=== PATIENT | male | born 1945 | race Two or more races ===

== ENCOUNTER 2018-09-18 06:43 | Day surgery (SDC) | payer OTHER ==
[~2018-09-18 06:43] MED LIST: GLIPIZIDE XL10 MG PO; HUMULIN 70100 UNIT/2 SUBCUTANEO; PRINIVIL20 MG PO
== END 2018-09-18 16:00 | disposition home or self-care (01) ==
LOC: CIR.AMB 06:43
DX: K64.8 Other hemorrhoids (principal); K64.4 Residual hemorrhoidal skin tags